=== PATIENT | male | born 1980 | race Caucasian/White ===

== ENCOUNTER 2020-06-23 13:28 | Emergency (ER) | payer SELFPAY | END 2020-06-23 14:45 | disposition left against medical advice (07) | LOC: BURERS 13:28 | DX: Z53.21 Procedure and treatment not carried out due to patient leaving prior to being seen by health care provider (principal) ==

== ENCOUNTER 2025-06-08 18:09 | Emergency (ER) | payer OTHER | END 2025-06-08 19:44 | disposition home or self-care (01) | LOC: BURERS 18:09 | DX: S20.211A Contusion of right front wall of thorax, initial encounter (principal); I10 Essential (primary) hypertension; F17.210 Nicotine dependence, cigarettes, uncomplicated; V89.2XXA Person injured in unspecified motor-vehicle accident, traffic, initial encounter; Y93.89 Activity, other specified | CPT/HCPCS: 99284 ==